=== PATIENT | female | born 1975 | race Caucasian/White ===

== ENCOUNTER 2016-12-08 08:15 | Emergency (ER) | payer BC ==
[2016-12-08 08:33] VITALS: BP 124/84
--- NOTE | 2017-01-10 17:13 | UC ---
Yasmine Hoff Anna, scribed for Hilary Varela MD on 12/08/16 at 0904 . Eye Complaint HPI - HPI Summary HPI Summary: Patient is a 41 y/o male [place] [facility] [place] with a red, itchy right eye that began this morning. She has discharge in her right eye. She has a productive cough with green phlegm and watery eyes. She reports she has had a cold for a week and was seen in her doctors office yesterday. She was not prescribed anything at that time. Her history is significant for sinus infections. Her right ear does not pop or crack when she swallows. Denies changes in urination or BM. She takes Sertraline normally but has not taken it in the last two days. She agrees to not take it for the next two weeks. - History of Current Complaint Chief Complaint: UCEye Stated Complaint: EYE ISSUE Hx Obtained From: Patient Onset/Duration: Lasting Hours, Still Present Severity Initially: Moderate Severity Currently: Moderate - Allergies/Home Medications Allergies/Adverse Reactions: Allergies Allergy/AdvReac Type Severity Reaction Status Date / Time ENVIRONMENT/SEASONAL ALLERGY Allergy SNEEZING, Uncoded 11/06/15 06:04 ITCHY WATERY EYES, STUFFY Home Medications: Home Medications Eszopiclone [Lunesta] 1 tab PO BEDTIME PRN 12/08/16 [History Confirmed 12/08/16] Sertraline* [Zoloft*] 1 tab PO DAILY 12/08/16 [History Confirmed 12/08/16] PMH/Surg Hx/FS Hx/Imm Hx Endocrine History Of: Denies: Diabetes, Thyroid Disease Cardiovascular History Of: Denies: Cardiac Disorders, Hypertension Respiratory History Of: Denies: COPD, Asthma GI/ History Of: Denies: Ulcer Neurological History Of: Reports: Migraine Psychological History Of: Reports: Depression - 10 YEARS AGO Cancer History Of: Denies: Breast Cancer - Surgical History Surgical History: Yes Surgery Procedure, Year, and Place: 04/1993 BILATERAL BREAST REDUCTION, [facility], Hysterectomy - Family History Known Family History: Positive: Diabetes - Maternal grandfather - Social History Occupation: Employed Full-time Alcohol Use: Rare Substance Use Type: None Smoking Status (MU): Never Smoked Tobacco - Immunization History Most Recent Influenza Vaccination: 2014 Most Recent Tetanus Shot: 2013 Most Recent Pneumonia Vaccination: none Review of Systems Constitutional: Negative Skin: Negative Eyes: Drainage, Eye Redness, Other - Itching ENT: Negative Respiratory: Cough Cardiovascular: Negative Gastrointestinal: Negative Genitourinary: Negative Motor: Negative Neurovascular: Negative Musculoskeletal: Negative Neurological: Negative Psychological: Negative All Other Systems Reviewed And Are Negative: Yes Physical Exam Triage Information Reviewed: Yes Appearance: Well-Nourished Vital Signs: Initial Vital Signs Temp 97.5 F 12/08/16 08:20 Pulse 96 12/08/16 08:20 Resp 18 12/08/16 08:20 BP 124/84 12/08/16 08:20 Pulse Ox 99 12/08/16 08:20 Vital Signs Reviewed: Yes Eye Exam: Normal ENT Exam: Normal Neck exam: Normal - No adenopathy appreciated Respiratory Exam: Normal Respiratory: Positive: Chest non-tender, Lungs clear, Normal breath sounds, No respiratory distress, No accessory muscle use Cardiovascular Exam: Normal Cardiovascular: Positive: RRR, No Murmur, Pulses Normal, Brisk Capillary Refill Abdominal Exam: Normal Abdomen Description: Positive: Nontender, No Organomegaly, Soft Bowel Sounds: Positive: Present Musculoskeletal Exam: Normal Musculoskeletal: Positive: Strength Intact Neurological Exam: Normal - Nonfocal, grossly intact Psychological Exam: Normal - Conversing easily and appropriately Skin Exam: Normal - No visible or reported rash Eye Complaint Course/Dx - Course Course Of Treatment: She takes sertraline normally but has not taken it in the last two days. She agrees to not take it for the next two weeks in order to take an antibiotic. No new problems in CCC. Considered below differential Dxs. - Differential Dx/Diagnosis Provider Diagnoses: Sinusitis. Conjunctivitis Discharge - Discharge Plan Condition: Stable Disposition: HOME Prescriptions: Azithromyxin HAILE (NF) [Z-Haile (Zithromax) 250 mg tabs #6] 2 tab PO .TODAY, THEN 1 DAILY #6 tab Ciprofloxacin 0.3% OPTH.JOSUÉ* [Cipro 0.3% Opth*] 2 drop RIGHT EYE Q8H #1 btl Patient Education Materials: Sinusitis (ED), Conjunctivitis (ED) Forms: *Work Release Referrals: Susana Gillette NP [Primary Care Provider] - Additional Instructions: Avoid Sertraline for the next two weeks. Please follow up with your primary care provider. Seek medical attention for worsening problems in the meantime. The documentation as recorded by the Yasmine be Anna accurately reflects the service I personally performed and the decisions made by me, Hilary Varela MD.
== END 2016-12-08 09:26 | disposition home or self-care (01) ==
LOC: UCEAST 08:15
DX: H10.31 Unspecified acute conjunctivitis, right eye (principal); J32.9 Chronic sinusitis, unspecified
CPT/HCPCS: 99212; G0463

== ENCOUNTER 2020-11-19 09:02 | Inpatient (IN) ==
[~2020-11-19 09:02] MED LIST: Buffered Lidocaine 1% SYRIN 1 ml INTRADERM ONE; Lactated Ringers 1000 ml BAG 1,000 ML IV SCH
[2020-11-19] MEDS ORDERED: Heparin 5000 UNITS/ML 1 mL VIAL ONE (09:16)
[2020-11-19] MEDS ORDERED: ceFAZolin 2 GM PREMIX 2 GM/50 ML BAG ONE (09:16)
[2020-11-19] MEDS ORDERED: ceFAZolin 1 GM ADVAN 1 GM ADDV.VIAL IVPB ONE (09:16)
[2020-11-19] MEDS ORDERED: Ketamine HCL 50 mg/ml 10 ml VIAL (500 MG) ONE (10:12)
[2020-11-19] MEDS ORDERED: fentaNYL 100 mcg/2 ml 50 MCG/ML VIAL ONE ×3 (10:13→16:26)
[2020-11-19] MEDS ORDERED: Midazolam 2 mg/2 ml VIAL 1 mg/ml 2 ml VIAL (2 mg) ONE (10:13)
[2020-11-19] MEDS ORDERED: HYDROmorphone 1 MG/1 ML SYRINGE ONE (10:13)
[2020-11-19] MEDS ORDERED: Ondansetron 4 mg VIAL 2 MG/ML 2 ml VIAL ONE ×3 (10:14→13:55)
[2020-11-19] MEDS ORDERED: Propofol 10 MG/ML 20 ML BTL ONE ×2 (10:14→15:33)
[2020-11-19] MEDS ORDERED: Dexamethasone IV 4 MG/ML VIAL 1 ml VIAL ONE ×3 (10:14→13:55)
[2020-11-19] MEDS ORDERED: Glycopyrrolate IV 0.2 MG/ML 1 ML VIAL ONE (10:14)
[2020-11-19] MEDS ORDERED: Lidocaine 2% PF 5 ML VIAL ONE (10:16)
[2020-11-19] MEDS ORDERED: Rocuronium 50 mg VIAL 10 mg/ml 5 ml VIAL (50 mg) ONE ×3 (11:17→14:40)
[2020-11-19] MEDS ORDERED: Bupivacaine 0.5% SDV PF 30ML VIAL ONE (12:43)
[2020-11-19] MEDS ORDERED: Phenylephrine 40 mcg/mL 10mL (400mcg) SYRINGE ONE ×2 (13:36→13:38)
[2020-11-19] MEDS ORDERED: EPHEDrine (Pressors) 50 MG/ML VIAL ONE (13:57)
[2020-11-19] MEDS ORDERED: DiMENhydriNATE IV 50 mg/ml 1 ml VIAL IV PUSH PRN (15:50)
[2020-11-19] MEDS ORDERED: Naloxone 0.4 mg VIAL 0.4 mg/ml 1 ml VIAL IV PRN (15:50)
[2020-11-19] MEDS ORDERED: diPHENhydraMINE IV 50 MG/ML 1 ml VIAL (BENADRYL) ONE ×2 (15:53→16:01)
[2020-11-19] MEDS ORDERED: DiMENhydriNATE IV 50 mg/ml 1 ml VIAL ONE (15:54)
[2020-11-19] MEDS ORDERED: diPHENhydraMINE IV 50 MG/ML 1 ml VIAL (BENADRYL) SLOW PUSH PRN (16:05)
[2020-11-19] MEDS ORDERED: HYDROmorphone 0.5 MG/0.5 ML SYRINGE IV SLOW PU PRN (16:05)
[2020-11-19] MEDS ORDERED: HYDROcodone/ACET. 7.5/325 LIQ 15 ML UDC PO PRN (16:05)
[2020-11-19] MEDS ORDERED: HYDROmorphone 1 MG/1 ML SYRINGE IV SLOW PU PRN (16:05)
[2020-11-19] MEDS: fentaNYL 100 mcg/2 ml 50 MCG/ML VIAL IV PRN ×5 (16:09→16:27)
[2020-11-19] MEDS ORDERED: Metoclopramide 5 MG/ML VIAL (10 mg) ONE (16:38)
[2020-11-19] MEDS: Lactated Ringers 1000 ml BAG 1,000 ML IV SCH (18:11)
[2020-11-19] MEDS: Ondansetron 4 mg VIAL 2 MG/ML 2 ml VIAL IV PRN (20:30)
[2020-11-19] MEDS: Famotidine IV 10 MG/ML 2 ml VIAL (20 mg) IV SLOW PU SCH (20:30)
[2020-11-19] MEDS: Heparin 5000 UNITS/ML 1 mL VIAL SUBCUT SCH (23:24)
[2020-11-20] MEDS: Lactated Ringers 1000 ml BAG 1,000 ML IV SCH ×3 (00:41→14:16)
[2020-11-20] MEDS: Heparin 5000 UNITS/ML 1 mL VIAL SUBCUT SCH ×3 (06:51→21:05)
[2020-11-20] MEDS: Famotidine IV 10 MG/ML 2 ml VIAL (20 mg) IV SLOW PU SCH ×2 (08:20→21:05)
[2020-11-20] MEDS: Ondansetron 4 mg VIAL 2 MG/ML 2 ml VIAL IV PRN (08:20)
[2020-11-20] MEDS: D5W 1/2 NS KCl 20 meq 1000 ml 1,000 ML IV SCH (18:37)
[2020-11-21] MEDS: D5W 1/2 NS KCl 20 meq 1000 ml 1,000 ML IV SCH (03:31)
[2020-11-21] MEDS: Heparin 5000 UNITS/ML 1 mL VIAL SUBCUT SCH (06:07)
[2020-11-21 07:33] VITALS: BP 118/72
[2020-11-21] MEDS: Famotidine IV 10 MG/ML 2 ml VIAL (20 mg) IV SLOW PU SCH (08:03)
[2020-11-21] MEDS: Ondansetron 4 mg VIAL 2 MG/ML 2 ml VIAL IV PRN (10:37)
== END 2020-11-21 11:10 | disposition home or self-care (01) | DRG 403 ==
LOC: AA 09:02 → SSU 17:55
PROVIDERS: ADMIT Surgery; ATTEND Surgery